=== PATIENT | female | born 1980 | race Caucasian/White ===

== ENCOUNTER 2016-07-02 17:01 | Outpatient (CLI) | payer OTHER ==
--- NOTE | 2016-07-03 17:16 | DIAGNOSTIC IMAGING REPORT ---
PROCEDURE: US 1ST TRIMESTER INDICATION: SIZE AND DATES TECHNIQUE: Harrington scale, color, and spectral Doppler transabdominal and endovaginal sonographic images of the first trimester gravid uterus were obtained. COMPARISON: None. FINDINGS: TRANSABDOMINAL SCANS: Early intrauterine gestational sac. TRANSVAGINAL SCANS: There is early viable intrauterine with cardiac activity (133). [place]-rump length 0.5 cm (6.3 weeks). Normal amniotic fluid and yolk sac. Placenta circumferential. There is a 1.2 cm ovoid nodular isoechoic area of the right superior gestational sac. IMPRESSION: 1. Early viable intrauterine at 6.3 weeks menstrual age (plus/minus 0.7 weeks). COLTON is 02/23/2017. 2. There is a 1.2 cm ovoid nodular along the right superior gestational sac. Etiology is not entirely clear, although this could represent endometrial polyp, placental anomaly (succenturiate lobe, chorioangioma), or unilateral demise of a twin . 3. Follow-up obstetric ultrasound in 3-4 weeks is recommended to further evaluate. 4. Findings discussed with SHANTA Christy.
== END 2016-07-02 23:00 ==
LOC: US SRH 17:01
DX: Z33.1 Pregnant state, incidental (principal)

== ENCOUNTER 2016-07-30 17:55 | Outpatient (CLI) | payer OTHER ==
--- NOTE | 2016-07-31 11:08 | DIAGNOSTIC IMAGING REPORT ---
PROCEDURE: US OB 1ST TRIMESTER W/TRANSVAG INDICATION: Follow-up placental nodule. Check size and dates. TECHNIQUE: Harrington scale, color, and spectral Doppler transabdominal and endovaginal sonographic images of the first trimester gravid uterus were obtained. 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 COMPARISON: Comparison is made to obstetric ultrasound on 07/02/2016. FINDINGS: TRANSABDOMINAL SCANS: Early intrauterine gestational sac. TRANSVAGINAL SCANS: Early viable intrauterine with cardiac activity (171). [place]-rump length is 4.3 cm (11.0 weeks). Normal fluid. Placenta is posterior and partially circumferential. There is no evidence of placental nodule as seen on prior study. There is a ventral uterine contraction. IMPRESSION: 1. Early viable intrauterine at 11.0 weeks menstrual age (plus or minus 1 week). COLTON based on today's study is 02/17/2017. When compared to the prior study (COLTON 02/23/2017), growth is advanced by approximate 6 days, but within normal limits. 2. No evidence of placental nodule (as suggested on prior study). 3. Follow-up obstetrical ultrasound with detailed anatomic survey is recommended (6-7 weeks). 4. Findings discussed with the patient and her (as requested). 5. Findings called to Dr. Meyer (as requested).
--- NOTE | 2016-07-31 11:08 | DIAGNOSTIC IMAGING REPORT ---
PROCEDURE: US OB 1ST TRIMESTER W/TRANSVAG INDICATION: Follow-up placental nodule. Check size and dates. TECHNIQUE: Harrington scale, color, and spectral Doppler transabdominal and endovaginal sonographic images of the first trimester gravid uterus were obtained. 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 COMPARISON: Comparison is made to obstetric ultrasound on 07/02/2016. FINDINGS: TRANSABDOMINAL SCANS: Early intrauterine gestational sac. TRANSVAGINAL SCANS: Early viable intrauterine with cardiac activity (171). [place]-rump length is 4.3 cm (11.0 weeks). Normal fluid. Placenta is posterior and partially circumferential. There is no evidence of placental nodule as seen on prior study. There is a ventral uterine contraction. IMPRESSION: 1. Early viable intrauterine at 11.0 weeks menstrual age (plus or minus 1 week). COLTON based on today's study is 02/17/2017. When compared to the prior study (COLTON 02/23/2017), growth is advanced by approximate 6 days, but within normal limits. 2. No evidence of placental nodule (as suggested on prior study). 3. Follow-up obstetrical ultrasound with detailed anatomic survey is recommended (6-7 weeks). 4. Findings discussed with the patient and her (as requested). 5. Findings called to Dr. Meyer (as requested).
== END 2016-07-30 23:00 ==
LOC: US SRH 17:55
DX: Z34.91 Encounter for supervision of normal pregnancy, unspecified, first trimester (principal); Z3A.11 11 weeks gestation of pregnancy

== ENCOUNTER 2016-09-19 16:09 | Outpatient (CLI) | payer OTHER ==
--- NOTE | 2016-09-19 17:36 | DIAGNOSTIC IMAGING REPORT ---
PROCEDURE: US OB DETAILED ANATOMIC INDICATION: ANATOMY TECHNIQUE: Harrington scale, color, and spectral Doppler images of the second trimester gravid uterus were obtained. COMPARISON: OB ultrasound 07/30/2016. FINDINGS: Single intrauterine with breech presentation, posterior fundal placenta without previa. There is a 4 x 1.6 x 1.5 cm placental leaking in the fundus. Heart rate 137 bpm. Amniotic fluid is unremarkable. Normal closed cervix measures 5.5 cm. The anatomic survey, including the intracranial anatomy, facial structures, nuchal region, spine, [id number]-[id number] view, outflow tracts, chest and diaphragm, stomach and abdomen, three-vessel cord and cord insertion, bladder and pelvis, kidneys and extremities, is within normal limits. BPD 4.0 cm, 18 weeks 1 day; head circumference 15.0 cm, 18-week; abdominal circumference 12.6 cm, 18 weeks 2 days; femur length 2.6 cm, 18 weeks. Composite age 18 weeks 1 day. COLTON 02/19/2017. IMPRESSION: 1. Single live intrauterine , breech, 18 weeks 1 day 2. COLTON 02/19/2017, 2 days delayed growth 3. anatomic survey within normal limits.
--- NOTE | 2016-09-19 17:36 | DIAGNOSTIC IMAGING REPORT ---
PROCEDURE: US OB DETAILED ANATOMIC INDICATION: ANATOMY TECHNIQUE: Harrington scale, color, and spectral Doppler images of the second trimester gravid uterus were obtained. COMPARISON: OB ultrasound 07/30/2016. FINDINGS: Single intrauterine with breech presentation, posterior fundal placenta without previa. There is a 4 x 1.6 x 1.5 cm placental leaking in the fundus. Heart rate 137 bpm. Amniotic fluid is unremarkable. Normal closed cervix measures 5.5 cm. The anatomic survey, including the intracranial anatomy, facial structures, nuchal region, spine, mtvj-[id number]-ocina view, outflow tracts, chest and diaphragm, stomach and abdomen, three-vessel cord and cord insertion, bladder and pelvis, kidneys and extremities, is within normal limits. BPD 4.0 cm, 18 weeks 1 day; head circumference 15.0 cm, 18-week; abdominal circumference 12.6 cm, 18 weeks 2 days; femur length 2.6 cm, 18 weeks. Composite age 18 weeks 1 day. COLTON 02/19/2017. IMPRESSION: 1. Single live intrauterine , breech, 18 weeks 1 day 2. COLTON 02/19/2017, 2 days delayed growth 3. anatomic survey within normal limits.
== END 2016-09-19 23:00 | disposition home or self-care (01) ==
LOC: US SRH 16:09
DX: O32.1XX0 Maternal care for breech presentation, not applicable or unspecified (principal); Z3A.18 18 weeks gestation of pregnancy